=== PATIENT | female | born 1990 | race American Indian/Alaskan Native ===

== ENCOUNTER 2016-07-01 10:50 | Emergency (ER) | payer OTHER ==
[2016-07-01 11:54] LABS: Eosinophils % (Auto) 1.3 % (0.0-4.3); Hematocrit 38.3 % (30.3-42.9); Hemoglobin 12.5 gm/dl (10.1-14.3); Mean Corpuscular HGB Conc 33 % (30-34); Mean Corpuscular Hemoglobin 31 pg (28-32); Mean Corpuscular Volume 96 fl (79-97); Platelet Count 244 K/mm3 (140-440); White Blood Count 3.7 K/mm3 (4.5-11.0)
[2016-07-01 12:29] LABS: Alanine Aminotransferase 8 units/L (7-56); Albumin 4.1 g/dL (3.9-5); Albumin/Globulin Ratio 1.2 %; Alkaline Phosphatase 50 units/L (35-129); Anion Gap 16 mmol/L; Bilirubin,Total 0.6 mg/dL (0.1-1.2); Blood Urea Nitrogen 7 mg/dL (7-17); Calcium 8.8 mg/dL (8.4-10.2); Carbon Dioxide 24 mmol/L (22-30); Glucose 75 mg/dL (65-100); Lipase 23 units/L (13-60); Potassium 3.7 mmol/L (3.6-5.0); Sodium 138 mmol/L (137-145); Total Protein 7.5 g/dL (6.3-8.2)
[2016-07-01] MEDS: MOTRIN PO ONE (15:32)
[2016-07-01 15:34] VITALS: BP 103/69
[2016-07-01 15:50] LABS: Bilirubin,Urine NEG (Negative); Blood,Urine NEG (Negative); Ketones,Urine NEG (Negative); Leukocyte Esterase,Urine TR (Negative); Mucus,Urine 1+ /HPF; Nitrite,Urine NEG (Negative); Protein,Urine <15 mg/dL mg/dL (Negative)
--- NOTE | 2016-07-01 17:11 | Emergency Department Report ---
ED General Adult HPI - General Chief complaint: Abdominal Pain Stated complaint: SEVERE STOMACH PAINS Time Seen by Provider: 07/01/16 15:14 Source: patient Mode of arrival: Ambulatory Limitations: No Limitations - History of Present Illness Initial comments: 26-year-old female presents to the ED complaining about abdominal pain all over. States that she took 3 tests in stable was positive, 1 was negative, and one was inconclusive. States that she is currently having generalized pain without nausea vomiting diarrhea, dysuria. -: Gradual, days(s) Severity scale (0 -10): 6 - Related Data Home Medications Medication Instructions Recorded Confirmed Last Taken No Known Home Medications [No 07/01/16 07/01/16 Unknown Reported Home Medications] Allergies Allergy/AdvReac Type Severity Reaction Status Date / Time No Known Allergies Allergy Unverified 07/01/16 11:27 ED Review of Systems ROS: Stated complaint: SEVERE STOMACH PAINS Other details as noted in HPI Constitutional: denies: chills, fever Eyes: denies: eye pain, eye discharge, vision change ENT: denies: ear pain, throat pain Respiratory: denies: cough, shortness of breath, wheezing Cardiovascular: denies: chest pain, palpitations Endocrine: no symptoms reported Gastrointestinal: abdominal pain. denies: nausea, diarrhea Genitourinary: denies: urgency, dysuria, discharge Musculoskeletal: denies: back pain, joint swelling, arthralgia Skin: denies: rash, lesions Neurological: denies: headache, weakness, paresthesias Psychiatric: denies: anxiety, depression Hematological/Lymphatic: denies: easy bleeding, easy bruising ED Past Medical Hx - Past Medical History Previous Medical History?: No - Surgical History Past Surgical History?: No - Social History Smoking Status: Never Smoker Substance Use Type: Alcohol - Medications Home Medications: Home Medications Medication Instructions Recorded Confirmed Last Taken Type No Known Home Medications [No 07/01/16 07/01/16 Unknown History Reported Home Medications] ED Physical Exam - General Limitations: No Limitations General appearance: alert, in no apparent distress - Head Head exam: Present: atraumatic, normocephalic - Eye Eye exam: Present: normal appearance - ENT ENT exam: Present: mucous membranes moist - Neck Neck exam: Present: normal inspection - Respiratory Respiratory exam: Present: normal lung sounds bilaterally. Absent: respiratory distress - Cardiovascular Cardiovascular Exam: Present: regular rate, normal rhythm. Absent: systolic murmur, diastolic murmur, rubs, gallop - GI/Abdominal GI/Abdominal exam: Present: soft, tenderness (generalized), normal bowel sounds. Absent: distended - Extremities Exam Extremities exam: Present: normal inspection - Back Exam Back exam: Present: normal inspection - Neurological Exam Neurological exam: Present: alert, oriented X3 - Psychiatric Psychiatric exam: Present: normal affect, normal mood - Skin Skin exam: Present: warm, dry, intact, normal color. Absent: rash ED Course Vital Signs 07/01/16 07/01/16 07/01/16 11:27 15:33 15:34 Temperature 98.4 F 98.1 F Pulse Rate 65 66 Respiratory 18 15 15 Rate Blood Pressure 96/68 Blood Pressure 103/69 [Left] O2 Sat by Pulse 100 98 98 Oximetry ED Medical Decision Making - Lab Data Result diagrams: 07/01/16 11:42 07/01/16 11:42 Vital Signs 07/01/16 07/01/16 07/01/16 11:27 15:33 15:34 Temperature 98.4 F 98.1 F Pulse Rate 65 66 Respiratory 18 15 15 Rate Blood Pressure 96/68 Blood Pressure 103/69 [Left] O2 Sat by Pulse 100 98 98 Oximetry Laboratory Results - last 24 hr 07/01/16 07/01/16 07/01/16 11:42 11:42 11:42 WBC 3.7 L RBC 4.00 Hgb 12.5 Hct 38.3 MCV 96 MCH 31 MCHC 33 RDW 13.0 L Plt Count 244 Lymph % (Auto) 33.3 Lake % (Auto) 8.3 H Eos % (Auto) 1.3 Baso % (Auto) 1.0 Lymph # 1.2 Lake # 0.3 Eos # 0.0 Baso # 0.0 Seg Neutrophils % 56.1 Seg Neutrophils # 2.1 Sodium 138 Potassium 3.7 Chloride 102.0 Carbon Dioxide 24 Anion Gap 16 BUN 7 Creatinine 0.5 L Estimated GFR > 60 BUN/Creatinine Ratio 14.00 Glucose 75 Calcium 8.8 Total Bilirubin 0.6 AST 14 ALT 8 Alkaline Phosphatase 50 Total Protein 7.5 Albumin 4.1 Albumin/Globulin Ratio 1.2 Lipase 23 HCG, Qual Negative Urine Color Urine Turbidity Urine pH Ur Specific Farrell Urine Protein Urine Glucose (UA) Urine Ketones Urine Blood Urine Nitrite Urine Bilirubin Urine Urobilinogen Ur Leukocyte Esterase Urine WBC (Auto) Urine RBC (Auto) U Epithel Cells (Auto) Urine Mucus 07/01/16 15:15 WBC RBC Hgb Hct MCV MCH MCHC RDW Plt Count Lymph % (Auto) Lake % (Auto) Eos % (Auto) Baso % (Auto) Lymph # Lake # Eos # Baso # Seg Neutrophils % Seg Neutrophils # Sodium Potassium Chloride Carbon Dioxide Anion Gap BUN Creatinine Estimated GFR BUN/Creatinine Ratio Glucose Calcium Total Bilirubin AST ALT Alkaline Phosphatase Total Protein Albumin Albumin/Globulin Ratio Lipase HCG, Qual Urine Color Yellow Urine Turbidity Clear Urine pH 7.0 Ur Specific Farrell 1.016 Urine Protein <15 mg/dl Urine Glucose (UA) Neg Urine Ketones Neg Urine Blood Neg Urine Nitrite Neg Urine Bilirubin Neg Urine Urobilinogen 2.0 Ur Leukocyte Esterase Tr Urine WBC (Auto) 4.0 Urine RBC (Auto) 4.0 U Epithel Cells (Auto) 13.0 Urine Mucus 1+ - Medical Decision Making states relief with medication in the ED. no longer TTP. will fu. states will return if symptoms worsen. Critical care attestation.: If time is entered above; I have spent that time in minutes in the direct care of this critically ill patient, excluding procedure time. ED Disposition Clinical Impression: Unspecified abdominal pain Disposition: DISCHARGED TO HOME OR SELFCARE Is pt being admited?: No Does the pt Need Aspirin: No Condition: Good Instructions: Abdominal Pain (ED) Additional Instructions: return to ED if symptoms worsen. drink plenty of fluids. Referrals: PRIMARY CARE, [Primary Care Provider] - 3-5 Days RAMSEY GOMES MD [Staff Physician] - 3-5 Days Forms: Work/School Release Form(ED) Time of Disposition: 17:13
[2016-07-01] MEDS: LEVSIN SL SL ONE (17:17)
== END 2016-07-01 17:40 | disposition home or self-care (01) ==
LOC: ED 10:50
DX: R10.84 Generalized abdominal pain (principal)
CPT/HCPCS: 36415; 80053; 81001; 83690; 84703; 85025; 99283